=== PATIENT | female | born 1955 | race Caucasian/White ===

== ENCOUNTER → 2018-01-16 | Outpatient (CLI) | payer OTHER | END | disposition home or self-care (01) | LOC: RAH 13:34 | PROVIDERS: ATTEND Family Medicine | DX: Z12.31 Encounter for screening mammogram for malignant neoplasm of breast (principal) | CPT/HCPCS: 77067 ==

== ENCOUNTER → 2019-04-14 | Outpatient (CLI) | payer OTHER | END | disposition home or self-care (01) | LOC: RAH 09:58 | PROVIDERS: ATTEND Family Medicine | DX: Z12.31 Encounter for screening mammogram for malignant neoplasm of breast (principal) | CPT/HCPCS: 77067 ==

== ENCOUNTER → 2020-06-23 | Outpatient (CLI) | payer OTHER | END | disposition home or self-care (01) | LOC: RAH 13:08 | PROVIDERS: ATTEND Orthopaedic Surgery | DX: M25.561 Pain in right knee (principal); M25.562 Pain in left knee | CPT/HCPCS: 93925 ==

== ENCOUNTER 2020-08-31 06:23 | Observation (INO) | payer OTHER ==
[2020-08-25 12:03] LABS: BASOPHILS % (AUTO) 0.6 % (0.0-5.0); EOSINOPHILS % (AUTO) 0.6 % (0.0-8.0); HEMATOCRIT 44.2 % (36-48); LYMPHOCYTES % (AUTO) 34.6 % (21.0-51.0); MEAN CORPUSCULAR HEMOGLOBIN 32.5 pg (27.0-33.0); MEAN CORPUSCULAR HGB CONC 35.1 g/dL (32.0-36.0); MEAN CORPUSCULAR VOLUME 92.7 fL (79-99); MONOCYTES % (AUTO) 9.1 % (3.0-13.0); NEUTROPHILS % (AUTO) 54.8 % (40.0-77.0); PLATELET COUNT (AUTO) 284 K/uL (130-400); RED BLOOD CELL COUNT(AUTO) 4.77 MIL/uL (4.00-5.50); RED CELL DISTRIBUTION WIDTH 13.2 % (11.0-15.5); WHITE BLOOD COUNT (AUTO) 9.8 K/uL (4.8-10.8)
[2020-08-25 12:12] LABS: CREATININE 0.9 mg/dL (0.5-1.5); INR 0.98 (0.85-1.15); POTASSIUM 3.6 mmol/L (3.5-5.1); PROTHROMBIN TIME 10.7 SEC (9.6-11.6)
[2020-08-25 12:13] LABS: PARTIAL THROMBOPLASTIN TIME 28.9 SEC (26.3-35.5)
[2020-08-30 12:18] VITALS: BP 139/85
[2020-08-31] VITALS (22 sets, daily range): BP systolic 135–162; BP diastolic 54–104
[~2020-08-31] VITALS: Ht 147.3 cm; Wt 72.1 kg
[~2020-08-31 06:23] MED LIST: AEC81 PO; AMLO-258 PO; ATOR10 PO; CALC-1125 PO; GABA300C PO; HYDR25TA PO; LISI10TA24 PO; MELO-108 PO; METF-444 PO; OMEP40CA21 PO; OXCA300T28 PO; SEROQUEL PO; TRAM50TA4 PO; TRINTELLIX PO; VITAMIN D3 PO
[2020-08-31] MEDS ORDERED: NACL 0.9% 1000ML 1,000 ML IV ONE (07:28)
[2020-08-31] MEDS: CEFAZOLIN SODIUM 1 GM VIAL IVP SCH ×4 (07:38→20:19)
[2020-08-31] MEDS ORDERED: TRANEXAMIC ACID 1000MG/10ML ONE (08:04)
[2020-08-31] MEDS ORDERED: OXYCODONE HCL 5 MG TAB PO PRN (08:15)
[2020-08-31] MEDS ORDERED: POTASSIUM CHLORIDE 10% ELIXIR 20 MEQ/15 ML UDCUP PO PRN (08:15)
[2020-08-31] MEDS ORDERED: POTASSIUM CHLORIDE 20MEQ/100ML 100 ML IV PRN (08:15)
[2020-08-31] MEDS ORDERED: ONDANSETRON 4MG INJ IVP PRN (08:15)
[2020-08-31] MEDS ORDERED: LIDOCAINE HCL-MPF 1% 2ML VIAL IV PRN (08:15)
[2020-08-31] MEDS ORDERED: MORPHINE 4 MG SYG IVP PRN (08:15)
[2020-08-31] MEDS: ACETAMINOPHEN 500 MG TABLET PO SCH ×2 (08:15→14:44)
[2020-08-31 08:23] LABS: CREATININE 0.7 mg/dL (0.5-1.5); POTASSIUM 3.4 mmol/L (3.5-5.1)
[2020-08-31] MEDS: TRINTELLIX 10 MG PO SCH (09:00)
[2020-08-31] MEDS ORDERED: ONDANSETRON 4MG INJ ONE (09:29)
[2020-08-31] MEDS ORDERED: DEXAMETHASONE SOD PHOSPHATE 10MG/ML 1ML VIAL ONE (09:29)
[2020-08-31] MEDS ORDERED: PROPOFOL 10 MG/ML 20ML VIAL IV ONE ×2 (09:29→11:57)
[2020-08-31] MEDS ORDERED: FENTANYL CITRATE PF 50 MCG/1 ML 2ML VIAL ONE ×3 (09:29→11:57)
[2020-08-31] MEDS ORDERED: LIDOCAINE PF 100MG/5ML (2%) SYRINGE 5ML ONE ×2 (09:29→09:30)
[2020-08-31] MEDS ORDERED: SUCCINYLCHOLINE CHLORIDE 20 MG/ML 10 ML VIAL ONE ×2 (09:29→09:30)
[2020-08-31] MEDS ORDERED: NEOSTIGMINE 5MG/5ML SYR IV ONE (09:29)
[2020-08-31] MEDS ORDERED: GLYCOPYRROLATE 1 MG/5 ML SYRINGE ONE (09:29)
[2020-08-31] MEDS ORDERED: MIDAZOLAM HCL 1 MG/ML 2ML VIAL ONE (09:30)
[2020-08-31] MEDS ORDERED: ROCURONIUM 10MG/1ML SYR 10 MG/ML ML ONE (09:30)
[2020-08-31] MEDS ORDERED: ROPIVACAINE 0.5% 5MG/ML 30ML IJ ONE (10:03)
[2020-08-31] MEDS ORDERED: METOPROLOL TARTRATE 1 MG/ML 5ML VIAL IV ONE (11:00)
[2020-08-31] MEDS ORDERED: ATROPINE 1MG SYG IVP ONE (11:16)
[2020-08-31] MEDS ORDERED: VANCOMYCIN IV ONE (11:18)
[2020-08-31] MEDS ORDERED: MEPERIDINE-PF 25 MG/ML SYG ONE ×2 (12:13→12:25)
[2020-08-31] MEDS: NACL 0.9% 1000ML 1,000 ML IV SCH (13:41)
[2020-08-31] MEDS: POLYETHYLENE GLYCOL 3350 17 GM POWD.PACK PO SCH (14:37)
[2020-08-31] MEDS: FAMOTIDINE 20MG TAB PO SCH ×2 (14:39→20:18)
[2020-08-31] MEDS: ASPIRIN 81 MG EC TAB PO SCH (14:39)
[2020-08-31] MEDS: KCL 20 MEQ ERTAB PO PRN ×2 (14:40→14:45)
[2020-08-31] MEDS: METFORMIN HCL 500 MG TABLET PO SCH (14:40)
[2020-08-31] MEDS: GABAPENTIN 300 MG CAPSULE PO SCH ×2 (14:40→20:18)
[2020-08-31] MEDS: HYDROCHLOROTHIAZIDE 25 MG TABLET PO SCH (14:41)
[2020-08-31] MEDS: CELECOXIB 200 MG CAP PO SCH ×2 (14:41→20:18)
[2020-08-31] MEDS: LISINOPRIL 10 MG TABLET PO SCH (14:41)
[2020-08-31] MEDS: AMLODIPINE 5 MG TAB PO SCH (14:41)
[2020-08-31] MEDS: OXCARBAZEPINE 300 MG TAB PO SCH (20:18)
[2020-08-31] MEDS: HYDROCODONE/ACETAMINOPHEN 5/325 MG TAB PO PRN (20:18)
[2020-08-31] MEDS: QUETIAPINE FUMARATE 100 MG TAB PO SCH (20:18)
[2020-09-01] VITALS (7 sets, daily range): BP systolic 90–143; BP diastolic 48–87
[2020-09-01] MEDS: ACETAMINOPHEN 500 MG TABLET PO SCH ×2 (00:15→08:25)
[2020-09-01] MEDS: NACL 0.9% 1000ML 1,000 ML IV SCH (03:20)
[2020-09-01 03:56] LABS: MEAN CORPUSCULAR HEMOGLOBIN 32.4 pg (27.0-33.0); MEAN CORPUSCULAR HGB CONC 35.1 g/dL (32.0-36.0); MEAN CORPUSCULAR VOLUME 92.1 fL (79-99); RED BLOOD CELL COUNT(AUTO) 3.8 MIL/uL (4.00-5.50); RED CELL DISTRIBUTION WIDTH 13.1 % (11.0-15.5); WHITE BLOOD COUNT (AUTO) 11.4 K/uL (4.8-10.8)
[2020-09-01 04:06] LABS: CREATININE 0.7 mg/dL (0.5-1.5)
[2020-09-01] MEDS ORDERED: ROPIVICAINE 250MG+KETOROLAC 15MG+EPINEPHRINE 0.3+CLONIDINE 80 IV PRN ×5 (08:00)
[2020-09-01] MEDS: FAMOTIDINE 20MG TAB PO SCH ×2 (08:17→20:31)
[2020-09-01] MEDS: ASPIRIN 81 MG EC TAB PO SCH (08:17)
[2020-09-01] MEDS: HYDROCHLOROTHIAZIDE 25 MG TABLET PO SCH (08:17)
[2020-09-01] MEDS: LISINOPRIL 10 MG TABLET PO SCH (08:18)
[2020-09-01] MEDS: CELECOXIB 200 MG CAP PO SCH ×2 (08:18→20:30)
[2020-09-01] MEDS: METFORMIN HCL 500 MG TABLET PO SCH (08:18)
[2020-09-01] MEDS: GABAPENTIN 300 MG CAPSULE PO SCH ×2 (08:18→20:30)
[2020-09-01] MEDS: TRINTELLIX 10 MG PO SCH (08:25)
[2020-09-01] MEDS: POLYETHYLENE GLYCOL 3350 17 GM POWD.PACK PO SCH (08:25)
[2020-09-01] MEDS: AMLODIPINE 5 MG TAB PO SCH (08:26)
[2020-09-01] MEDS: OXCARBAZEPINE 300 MG TAB PO SCH (20:30)
[2020-09-01] MEDS: QUETIAPINE FUMARATE 100 MG TAB PO SCH (20:31)
[2020-09-02] MEDS: ACETAMINOPHEN 500 MG TABLET PO SCH ×2 (00:15→07:55)
[2020-09-02 03:10] VITALS: BP 112/66
[2020-09-02 07:35] LABS: CREATININE 0.9 mg/dL (0.5-1.5); POTASSIUM 3.5 mmol/L (3.5-5.1)
[2020-09-02] MEDS: CELECOXIB 200 MG CAP PO SCH (07:52)
[2020-09-02] MEDS: ASPIRIN 81 MG EC TAB PO SCH (07:52)
[2020-09-02] MEDS: METFORMIN HCL 500 MG TABLET PO SCH (07:52)
[2020-09-02] MEDS: POLYETHYLENE GLYCOL 3350 17 GM POWD.PACK PO SCH (07:53)
[2020-09-02] MEDS: GABAPENTIN 300 MG CAPSULE PO SCH (07:53)
[2020-09-02] MEDS: AMLODIPINE 5 MG TAB PO SCH (07:53)
[2020-09-02] MEDS: FAMOTIDINE 20MG TAB PO SCH (07:53)
[2020-09-02] MEDS: HYDROCHLOROTHIAZIDE 25 MG TABLET PO SCH (07:54)
[2020-09-02] MEDS: LISINOPRIL 10 MG TABLET PO SCH (07:54)
[2020-09-02] MEDS: HYDROCODONE/ACETAMINOPHEN 5/325 MG TAB PO PRN ×2 (07:55→16:27)
[2020-09-02] MEDS: TRINTELLIX 10 MG PO SCH (07:55)
[2020-09-02 08:09] VITALS: BP 148/72
[2020-09-02 11:37] VITALS: BP 92/56
[2020-09-03] MEDS ORDERED: BISACODYL 10 MG SUPP.RECT RC PRN (08:15)
== END 2020-09-02 18:58 | disposition home or self-care (01) ==
LOC: DAH 06:23 → DAHIP 06:24 → 4BH 12:51
PROVIDERS: ADMIT Orthopaedic Surgery; ATTEND Orthopaedic Surgery
DX: M17.11 Unilateral primary osteoarthritis, right knee (principal); Z20.822 Contact with and (suspected) exposure to COVID-19; M21.161 Varus deformity, not elsewhere classified, right knee; M21.162 Varus deformity, not elsewhere classified, left knee; Z79.82 Long term (current) use of aspirin; Z79.899 Other long term (current) drug therapy
CPT/HCPCS: 27447; 36415 ×4; 80048 ×4; 82948 ×9; 85025; 85027; 85610; 85730; 87635; 96361; 96374; 96375; 96376; 97039 ×5; 97116 ×4; 97161; 97530 ×4; A4215; A4221; A4222; A4223; A4600; A4649 ×5; A4663; A4930; A5120; C1776; C9803; G0378 ×54; G8979; G8980; G8981; G8982; G8983; J0330 ×2; J0461; J0690 ×3; J1100; J2001 ×2; J2175 ×2; J2250; J2270; J2405; J2704 ×2; J2710; J2795; J3010 ×3; J3480 ×2; J3490 ×5; J7030 ×3; J7040; J3370

== ENCOUNTER 2021-06-30 15:53 | Inpatient (IN) | payer OTHER ==
[~2021-06-30] VITALS: Ht 147.3 cm; Wt 65.3 kg
[~2021-06-30 15:53] MED LIST changes: -AEC81 PO; +AMOX-426 PO; +ASPI-1443 PO; +METO25TA6 PO; +QUET400T13 PO; -TRAM50TA4 PO
[2021-06-30 17:03] LABS: BASOPHILS % (AUTO) 0.3 % (0.0-5.0); EOSINOPHILS % (AUTO) 0.5 % (0.0-8.0); HEMATOCRIT 45.4 % (36-48); LYMPHOCYTES % (AUTO) 9.9 % (21.0-51.0); MEAN CORPUSCULAR HEMOGLOBIN 31.6 pg (27.0-33.0); MEAN CORPUSCULAR HGB CONC 33.5 g/dL (32.0-36.0); MEAN CORPUSCULAR VOLUME 94.4 fL (79-99); MONOCYTES % (AUTO) 9.5 % (3.0-13.0); NEUTROPHILS % (AUTO) 79.4 % (40.0-77.0); PLATELET COUNT (AUTO) 258 K/uL (130-400); RED BLOOD CELL COUNT(AUTO) 4.81 MIL/uL (4.00-5.50); RED CELL DISTRIBUTION WIDTH 13.9 % (11.0-15.5); WHITE BLOOD COUNT (AUTO) 18.9 K/uL (4.8-10.8)
[2021-06-30 17:12] LABS: CREATININE 1.1 mg/dL (0.5-1.5)
[2021-06-30 17:17] LABS: APPEARANCE,URINE Cloudy (CLEAR); BILIRUBIN,URINE Negative (NEGATIVE); COLOR,URINE Dark Yellow (YELLOW); GLUCOSE, URINE (UA) 250 mg/dL (NEGATIVE); KETONES,URINE Trace mg/dL (NEGATIVE); LEUKOCYTE ESTERASE ,URINE Trace (NEGATIVE); NITRATE,URINE Negative (NEGATIVE); OCCULT BLOOD,URINE Trace (NEGATIVE); PROTEIN,URINE POS 2+ mg/dL (NEGATIVE)
[2021-06-30 17:22] LABS: ALBUMIN 3.2 g/dL (3.5-5.0); BILIRUBIN,TOTAL 0.4 mg/dL (0.2-1.0); TOTAL PROTEIN, SERUM 8.3 g/dL (6.0-8.3)
[2021-06-30] MEDS ORDERED: POTASSIUM BICARB/CIT AC 25 MEQ TABLET.EFF PO ONE (17:30)
[2021-06-30] MEDS ORDERED: 0.9%NACL 1000ML 1,000 ML IV ONE (17:30)
[2021-06-30] MEDS ORDERED: INSULIN HUMULIN R 100 UNIT/ML 3ML IV ONE (17:30)
[2021-06-30 17:43] LABS: BACTERIA,URINE Few /HPF (None Seen); OTHER CASTS, URINE MIXED CELL CASTS 2+ /LPF (None Seen); SQUAMOUS EPITHELIAL CELL,UR Moderate /HPF (0-2)
[2021-06-30 17:44] LABS: MUCUS,URINE Few LPF (None Seen)
[2021-06-30] MEDS ORDERED: MEROPENEM 1 GM VIAL IVP SCH (18:00)
[2021-06-30] MEDS ORDERED: DOCUSATE SODIUM 100 MG CAP PO PRN (18:00)
[2021-06-30] MEDS ORDERED: LACTULOSE 20 GM/30 ML UDCUP PO PRN (18:00)
[2021-06-30] MEDS ORDERED: ACETAMINOPHEN 650 MG SUPPOSITORY RC PRN (18:00)
[2021-06-30] MEDS ORDERED: DEXTROSE 50%-WATER 50 ML DISP.SYRIN IV PRN (18:00)
[2021-06-30] MEDS ORDERED: ALBUTEROL INHALER 90MCG/INH IH PRN (18:00)
[2021-06-30] MEDS ORDERED: GLUCAGON 1MG KIT 1 MG ML IM PRN (18:00)
[2021-06-30] MEDS: MEROPENEM 1 GM VIAL IVP SCH (18:01)
[2021-06-30] MEDS: ZOSYN 3.375GM +NS 50ML IV SCH (18:01)
[2021-06-30] MEDS: CLINDAMYCIN IVPB 300MG/50ML 50 ML IV SCH (19:20)
[2021-06-30] MEDS: HYDRALAZINE 20MG/ML VIAL IV PRN (20:26)
[2021-06-30] MEDS: INSULIN HUMULIN R 100 UNIT/ML 3ML SQ SCH (21:00)
[2021-07-01] MEDS ORDERED: 0.9%NACL 50ML 50 ML IV ONE ×2 (01:36→10:53)
[2021-07-01] MEDS: ZOSYN 3.375GM +NS 50ML IV SCH ×2 (01:40→11:12)
[2021-07-01] MEDS: MEROPENEM 1 GM VIAL IVP SCH ×2 (01:40→11:12)
[2021-07-01] MEDS ORDERED: TEMAZEPAM 15 MG CAPSULE PO ONE (02:30)
[2021-07-01] MEDS: ONDANSETRON 4MG INJ IVP PRN ×2 (02:46→11:13)
[2021-07-01] MEDS: CLINDAMYCIN IVPB 300MG/50ML 50 ML IV SCH ×2 (04:34→10:00)
[2021-07-01 05:50] LABS: MEAN CORPUSCULAR HEMOGLOBIN 32.3 pg (27.0-33.0); MEAN CORPUSCULAR HGB CONC 35.3 g/dL (32.0-36.0); MEAN CORPUSCULAR VOLUME 91.3 fL (79-99); RED BLOOD CELL COUNT(AUTO) 4.71 MIL/uL (4.00-5.50); RED CELL DISTRIBUTION WIDTH 13.5 % (11.0-15.5); WHITE BLOOD COUNT (AUTO) 18.8 K/uL (4.8-10.8)
[2021-07-01 06:03] LABS: CREATININE 0.7 mg/dL (0.5-1.5); MAGNESIUM 1.8 mg/dL (1.80-2.40); PHOSPHORUS 2.7 mg/dL (2.5-4.9)
[2021-07-01] MEDS: INSULIN HUMULIN R 100 UNIT/ML 3ML SQ SCH ×4 (07:30→21:00)
[2021-07-01] MEDS: ENOXAPARIN SODIUM 30 MG/0.3 ML SQ SCH (09:00)
[2021-07-01] MEDS: PANTOPRAZOLE 40 MG/VIAL IVP SCH (09:00)
[2021-07-01] MEDS ORDERED: 0.9%NACL 100ML 100 ML ONE (10:53)
[2021-07-01] MEDS: HYDROCODONE/ACETAMINOPHEN 5/325 MG TAB PO PRN (11:14)
[2021-07-01] MEDS ORDERED: POTASSIUM CHLORIDE 10% ELIXIR 20 MEQ/15 ML UDCUP ONE (12:05)
[2021-07-01] MEDS ORDERED: POTASSIUM CHLORIDE 20MEQ/100ML 100 ML IV PRN (12:30)
[2021-07-01] MEDS ORDERED: LIDOCAINE HCL-MPF 1% 2ML VIAL IV PRN (12:30)
[2021-07-01] MEDS ORDERED: POTASSIUM CHLORIDE 10% ELIXIR 20 MEQ/15 ML UDCUP PO PRN (12:30)
[2021-07-01] MEDS: KCL 20 MEQ ERTAB PO PRN (14:00)
[2021-07-01] MEDS: HYDRALAZINE 20MG/ML VIAL IV PRN (14:03)
[2021-07-01] MEDS ORDERED: VANCOMYCIN PROTOCOL PER PHARMACY IV SCH (15:00)
[2021-07-01] MEDS: AMP/SULBAC 3GM+NS 100ML 100 ML IV SCH ×2 (16:21→21:15)
[2021-07-01 16:23] VITALS: BP 188/93
[2021-07-01] MEDS ORDERED: 0.9% NACL 250ML 250 ML ONE (17:08)
[2021-07-01] MEDS: VANCOMYCIN 1G/250ML KIT 250 ML IV SCH (17:10)
[2021-07-01 20:05] VITALS: BP 129/94
[2021-07-01 23:27] VITALS: BP 165/84
[2021-07-01] MEDS ORDERED: QUETIAPINE FUMARATE 100 MG TAB ONE (23:44)
[2021-07-01] MEDS: QUETIAPINE FUMARATE 100 MG TAB PO SCH (23:56)
[2021-07-02] MEDS: AMP/SULBAC 3GM+NS 100ML 100 ML IV SCH ×4 (03:36→22:09)
[2021-07-02 03:55] VITALS: BP 118/66
[2021-07-02 04:38] LABS: BASOPHILS % (AUTO) 0.3 % (0.0-5.0); EOSINOPHILS % (AUTO) 1.7 % (0.0-8.0); HEMATOCRIT 39.3 % (36-48); LYMPHOCYTES % (AUTO) 21.8 % (21.0-51.0); MEAN CORPUSCULAR HEMOGLOBIN 31.2 pg (27.0-33.0); MEAN CORPUSCULAR HGB CONC 33.3 g/dL (32.0-36.0); MEAN CORPUSCULAR VOLUME 93.6 fL (79-99); MONOCYTES % (AUTO) 10.3 % (3.0-13.0); NEUTROPHILS % (AUTO) 65.3 % (40.0-77.0); PLATELET COUNT (AUTO) 250 K/uL (130-400); RED CELL DISTRIBUTION WIDTH 13.5 % (11.0-15.5); WHITE BLOOD COUNT (AUTO) 15.5 K/uL (4.8-10.8)
[2021-07-02 05:03] LABS: ALBUMIN 2.4 g/dL (3.5-5.0); BILIRUBIN,TOTAL 0.4 mg/dL (0.2-1.0); CREATININE 0.7 mg/dL (0.5-1.5); TOTAL PROTEIN, SERUM 6.5 g/dL (6.0-8.3)
[2021-07-02 05:31] LABS: POTASSIUM 2.9 mmol/L (3.5-5.1)
[2021-07-02] MEDS: INSULIN HUMULIN R 100 UNIT/ML 3ML SQ SCH ×4 (05:32→21:00)
[2021-07-02] MEDS: KCL 20 MEQ ERTAB PO PRN ×3 (05:46→18:45)
[2021-07-02 08:00] VITALS: BP 143/82
[2021-07-02] MEDS: ENOXAPARIN SODIUM 30 MG/0.3 ML SQ SCH ×2 (09:00→09:45)
[2021-07-02] MEDS: VANCOMYCIN 1G/250ML KIT 250 ML IV SCH ×2 (09:45→20:37)
[2021-07-02] MEDS: PANTOPRAZOLE 40 MG/VIAL IVP SCH (09:45)
[2021-07-02 11:43] VITALS: BP 164/86
[2021-07-02] MEDS: HYDROCODONE/ACETAMINOPHEN 5/325 MG TAB PO PRN ×2 (13:04→20:35)
[2021-07-02 16:42] VITALS: BP 136/62
[2021-07-02 20:20] VITALS: BP 159/93
[2021-07-02] MEDS: QUETIAPINE FUMARATE 100 MG TAB PO SCH (20:37)
[2021-07-03 00:12] VITALS: BP 130/64
[2021-07-03] MEDS: AMP/SULBAC 3GM+NS 100ML 100 ML IV SCH ×4 (03:42→20:27)
[2021-07-03 03:48] VITALS: BP 169/78
[2021-07-03] MEDS: HYDROCODONE/ACETAMINOPHEN 5/325 MG TAB PO PRN ×4 (04:17→22:57)
[2021-07-03 05:00] LABS: BASOPHILS % (AUTO) 0.4 % (0.0-5.0); EOSINOPHILS % (AUTO) 4.7 % (0.0-8.0); HEMATOCRIT 38.9 % (36-48); MEAN CORPUSCULAR HEMOGLOBIN 31.1 pg (27.0-33.0); MEAN CORPUSCULAR HGB CONC 32.9 g/dL (32.0-36.0); MEAN CORPUSCULAR VOLUME 94.4 fL (79-99); MONOCYTES % (AUTO) 10.9 % (3.0-13.0); NEUTROPHILS % (AUTO) 55.5 % (40.0-77.0); PLATELET COUNT (AUTO) 262 K/uL (130-400); RED BLOOD CELL COUNT(AUTO) 4.12 MIL/uL (4.00-5.50); RED CELL DISTRIBUTION WIDTH 13.4 % (11.0-15.5); WHITE BLOOD COUNT (AUTO) 13.3 K/uL (4.8-10.8)
[2021-07-03 05:09] LABS: ALBUMIN 2.5 g/dL (3.5-5.0); BILIRUBIN,TOTAL 0.3 mg/dL (0.2-1.0); CREATININE 0.6 mg/dL (0.5-1.5); POTASSIUM 3.4 mmol/L (3.5-5.1); TOTAL PROTEIN, SERUM 6.4 g/dL (6.0-8.3)
[2021-07-03 07:30] VITALS: BP 193/96
[2021-07-03] MEDS: INSULIN HUMULIN R 100 UNIT/ML 3ML SQ SCH ×4 (07:30→21:00)
[2021-07-03 11:00] VITALS: BP 182/94
[2021-07-03] MEDS: VANCOMYCIN 1G/250ML KIT 250 ML IV SCH ×2 (11:15→21:30)
[2021-07-03] MEDS: PANTOPRAZOLE 40 MG/VIAL IVP SCH (11:16)
[2021-07-03] MEDS: ENOXAPARIN SODIUM 30 MG/0.3 ML SQ SCH (11:17)
[2021-07-03 16:00] VITALS: BP 182/94
[2021-07-03] MEDS: KCL 20 MEQ ERTAB PO PRN ×2 (17:29→17:30)
[2021-07-03 20:27] VITALS: BP 164/82
[2021-07-03] MEDS: METOPROLOL TARTRATE 25 MG TAB PO SCH (20:27)
[2021-07-03] MEDS: QUETIAPINE FUMARATE 100 MG TAB PO SCH (21:30)
[2021-07-03] MEDS: OXCARBAZEPINE 300 MG TAB PO SCH (21:31)
[2021-07-04] VITALS (18 sets, daily range): BP systolic 133–201; BP diastolic 77–107
[2021-07-04] MEDS: AMP/SULBAC 3GM+NS 100ML 100 ML IV SCH ×4 (02:56→22:30)
[2021-07-04 04:42] LABS: BASOPHILS % (AUTO) 0.6 % (0.0-5.0); EOSINOPHILS % (AUTO) 5.5 % (0.0-8.0); LYMPHOCYTES % (AUTO) 36.1 % (21.0-51.0); MEAN CORPUSCULAR HEMOGLOBIN 31.9 pg (27.0-33.0); MEAN CORPUSCULAR HGB CONC 33.9 g/dL (32.0-36.0); MONOCYTES % (AUTO) 12.2 % (3.0-13.0); NEUTROPHILS % (AUTO) 44.7 % (40.0-77.0); PLATELET COUNT (AUTO) 242 K/uL (130-400); RED BLOOD CELL COUNT(AUTO) 3.83 MIL/uL (4.00-5.50); RED CELL DISTRIBUTION WIDTH 13.5 % (11.0-15.5); WHITE BLOOD COUNT (AUTO) 9.4 K/uL (4.8-10.8)
[2021-07-04 05:04] LABS: ALBUMIN 2.2 g/dL (3.5-5.0); BILIRUBIN,TOTAL 0.3 mg/dL (0.2-1.0); CREATININE 0.6 mg/dL (0.5-1.5); POTASSIUM 3.5 mmol/L (3.5-5.1)
[2021-07-04] MEDS: INSULIN HUMULIN R 100 UNIT/ML 3ML SQ SCH ×4 (07:30→21:00)
[2021-07-04] MEDS: ENOXAPARIN SODIUM 30 MG/0.3 ML SQ SCH (09:00)
[2021-07-04] MEDS: ASPIRIN 81 MG EC TAB PO SCH (09:00)
[2021-07-04] MEDS ORDERED: 0.9% NACL 250ML 250 ML ONE ×2 (09:04→09:20)
[2021-07-04] MEDS: PANTOPRAZOLE 40 MG/VIAL IVP SCH (09:09)
[2021-07-04] MEDS: METOPROLOL TARTRATE 25 MG TAB PO SCH ×2 (09:09→21:02)
[2021-07-04] MEDS: VANCOMYCIN 1G/250ML KIT 250 ML IV SCH ×2 (09:18→21:01)
[2021-07-04] MEDS ORDERED: SUCCINYLCHOLINE CHLORIDE 20 MG/ML 10 ML VIAL ONE ×2 (13:03→13:04)
[2021-07-04] MEDS ORDERED: ONDANSETRON 4MG INJ ONE (13:03)
[2021-07-04] MEDS ORDERED: MIDAZOLAM HCL 1 MG/ML 2ML VIAL ONE (13:03)
[2021-07-04] MEDS ORDERED: DEXAMETHASONE SOD PHOSPHATE 10MG/ML 1ML VIAL ONE (13:03)
[2021-07-04] MEDS ORDERED: GLYCOPYRROLATE 1 MG/5 ML SYRINGE ONE (13:03)
[2021-07-04] MEDS ORDERED: LIDOCAINE PF 100MG/5ML (2%) SYRINGE 5ML ONE ×2 (13:03→13:04)
[2021-07-04] MEDS ORDERED: FENTANYL CITRATE PF 50 MCG/1 ML 2ML VIAL ONE ×2 (13:04→13:46)
[2021-07-04] MEDS ORDERED: PROPOFOL 10 MG/ML 20ML VIAL IV ONE (13:04)
[2021-07-04] MEDS ORDERED: ROCURONIUM 10MG/1ML SYR 10 MG/ML ML ONE (13:04)
[2021-07-04] MEDS ORDERED: NEOSTIGMINE 5MG/5ML SYR IV ONE (13:04)
[2021-07-04] MEDS ORDERED: MEPERIDINE-PF 25 MG/ML SYG ONE (13:38)
[2021-07-04] MEDS: HYDROCODONE/ACETAMINOPHEN 5/325 MG TAB PO PRN ×2 (14:58→21:02)
[2021-07-04] MEDS: ACETAMINOPHEN 325 MG TAB PO PRN (17:47)
[2021-07-04] MEDS: OXCARBAZEPINE 300 MG TAB PO SCH (21:01)
[2021-07-04] MEDS: QUETIAPINE FUMARATE 100 MG TAB PO SCH (21:02)
[2021-07-05] VITALS: BP 143/78
[2021-07-05] MEDS: ACETAMINOPHEN 325 MG TAB PO PRN ×2 (02:40→21:30)
[2021-07-05] MEDS: AMP/SULBAC 3GM+NS 100ML 100 ML IV SCH ×4 (03:28→20:11)
[2021-07-05 03:59] VITALS: BP 150/76
[2021-07-05 05:28] LABS: BASOPHILS % (AUTO) 0.5 % (0.0-5.0); HEMATOCRIT 40.1 % (36-48); LYMPHOCYTES % (AUTO) 31.9 % (21.0-51.0); MEAN CORPUSCULAR HEMOGLOBIN 31.1 pg (27.0-33.0); MEAN CORPUSCULAR HGB CONC 32.9 g/dL (32.0-36.0); MEAN CORPUSCULAR VOLUME 94.4 fL (79-99); MONOCYTES % (AUTO) 11.3 % (3.0-13.0); NEUTROPHILS % (AUTO) 51.5 % (40.0-77.0); PLATELET COUNT (AUTO) 281 K/uL (130-400); RED BLOOD CELL COUNT(AUTO) 4.25 MIL/uL (4.00-5.50); RED CELL DISTRIBUTION WIDTH 13.2 % (11.0-15.5); WHITE BLOOD COUNT (AUTO) 13.2 K/uL (4.8-10.8)
[2021-07-05 06:02] LABS: ALBUMIN 2.5 g/dL (3.5-5.0); BILIRUBIN,TOTAL 0.3 mg/dL (0.2-1.0); CREATININE 0.7 mg/dL (0.5-1.5); POTASSIUM 3.3 mmol/L (3.5-5.1); TOTAL PROTEIN, SERUM 6.9 g/dL (6.0-8.3)
[2021-07-05] MEDS: INSULIN HUMULIN R 100 UNIT/ML 3ML SQ SCH ×4 (06:47→21:00)
[2021-07-05 08:00] VITALS: BP 156/83
[2021-07-05] MEDS ORDERED: 0.9% NACL 250ML 250 ML ONE (08:25)
[2021-07-05] MEDS: VANCOMYCIN 1G/250ML KIT 250 ML IV SCH ×2 (08:40→20:11)
[2021-07-05] MEDS: HYDROCODONE/ACETAMINOPHEN 5/325 MG TAB PO PRN ×4 (08:41→17:30)
[2021-07-05] MEDS: ENOXAPARIN SODIUM 30 MG/0.3 ML SQ SCH (08:41)
[2021-07-05] MEDS: ASPIRIN 81 MG EC TAB PO SCH (08:42)
[2021-07-05] MEDS: PANTOPRAZOLE 40 MG/VIAL IVP SCH (08:42)
[2021-07-05] MEDS: METOPROLOL TARTRATE 25 MG TAB PO SCH ×2 (08:42→21:30)
[2021-07-05] MEDS: KCL 20 MEQ ERTAB PO PRN ×2 (08:42→16:29)
[2021-07-05 12:00] VITALS: BP 162/85
[2021-07-05 16:00] VITALS: BP 149/78
[2021-07-05 20:00] VITALS: BP 102/96
[2021-07-05] MEDS: OXCARBAZEPINE 300 MG TAB PO SCH (21:30)
[2021-07-05] MEDS: QUETIAPINE FUMARATE 100 MG TAB PO SCH (21:30)
[2021-07-06] VITALS: BP 142/74
[2021-07-06] MEDS: AMP/SULBAC 3GM+NS 100ML 100 ML IV SCH ×3 (02:32→09:00)
[2021-07-06 03:53] VITALS: BP 116/70
[2021-07-06 04:15] LABS: BASOPHILS % (AUTO) 0.7 % (0.0-5.0); EOSINOPHILS % (AUTO) 3.2 % (0.0-8.0); HEMATOCRIT 35.8 % (36-48); LYMPHOCYTES % (AUTO) 39.2 % (21.0-51.0); MEAN CORPUSCULAR HEMOGLOBIN 32.1 pg (27.0-33.0); MEAN CORPUSCULAR HGB CONC 33.8 g/dL (32.0-36.0); MONOCYTES % (AUTO) 11.2 % (3.0-13.0); NEUTROPHILS % (AUTO) 44.9 % (40.0-77.0); PLATELET COUNT (AUTO) 289 K/uL (130-400); RED BLOOD CELL COUNT(AUTO) 3.77 MIL/uL (4.00-5.50); RED CELL DISTRIBUTION WIDTH 13.5 % (11.0-15.5); WHITE BLOOD COUNT (AUTO) 10.6 K/uL (4.8-10.8)
[2021-07-06 04:28] LABS: ALBUMIN 2.3 g/dL (3.5-5.0); BILIRUBIN,TOTAL 0.2 mg/dL (0.2-1.0); CREATININE 0.7 mg/dL (0.5-1.5); PHOSPHORUS 3.5 mg/dL (2.5-4.9); POTASSIUM 3.6 mmol/L (3.5-5.1); TOTAL PROTEIN, SERUM 6.2 g/dL (6.0-8.3)
[2021-07-06] MEDS: INSULIN HUMULIN R 100 UNIT/ML 3ML SQ SCH (06:08)
[2021-07-06 07:05] VITALS: BP 146/82
[2021-07-06] MEDS: ASPIRIN 81 MG EC TAB PO SCH (08:44)
[2021-07-06] MEDS: PANTOPRAZOLE 40 MG/VIAL IVP SCH ×2 (08:45→09:00)
[2021-07-06] MEDS: METOPROLOL TARTRATE 25 MG TAB PO SCH (08:45)
[2021-07-06] MEDS: ENOXAPARIN SODIUM 30 MG/0.3 ML SQ SCH (08:45)
[2021-07-06] MEDS: VANCOMYCIN 1G/250ML KIT 250 ML IV SCH (09:00)
[2021-07-06 11:20] VITALS: BP 137/77
== END 2021-07-06 13:26 | disposition home or self-care (01) | DRG 603 ==
LOC: EDH 15:53 → OBSVTOIN 17:56 → EDHIP 17:56 → 3DH 07-01 14:34
PROVIDERS: ADMIT Internal Medicine; ATTEND Internal Medicine
PROC: 0J9J0ZZ Drainage of Right Hand Subcutaneous Tissue and Fascia, Open Approach (ICD-10-PCS; principal; 2021-07-04 13:17)
DX: L03.113 Cellulitis of right upper limb (principal); L02.511 Cutaneous abscess of right hand; E87.1 Hypo-osmolality and hyponatremia; N39.0 Urinary tract infection, site not specified; W55.01XA Bitten by cat, initial encounter; E11.65 Type 2 diabetes mellitus with hyperglycemia; E87.6 Hypokalemia; I10 Essential (primary) hypertension; Z20.822 Contact with and (suspected) exposure to COVID-19; M19.90 Unspecified osteoarthritis, unspecified site; Z96.651 Presence of right artificial knee joint; Z83.3 Family history of diabetes mellitus; E78.5 Hyperlipidemia, unspecified; Z79.899 Other long term (current) drug therapy; E78.00 Pure hypercholesterolemia, unspecified; B85.0 Pediculosis due to Pediculus humanus capitis; Z72.0 Tobacco use; D72.829 Elevated white blood cell count, unspecified; Y93.89 Activity, other specified; Y92.89 Other specified places as the place of occurrence of the external cause; Y99.8 Other external cause status
CPT/HCPCS: 36415; 71045; 73130; 73220; 80048; 80053; 80202; 81001; 82948; 83605; 83735; 84100; 84145; 84484; 85025; 85027; 87040; 87070; 87076; 87088; 87205; 87635; A6266; C9113; C9803; G0378; J0295; J0330; J0360; J1100; J1650; J1815; J2001; J2175; J2185; J2250; J2405; J2543; J2704; J2710; J3010; J3370; J3480; J3490; J7050

== ENCOUNTER → 2023-10-01 | Outpatient (CLI) | payer OTHER | END | disposition home or self-care (01) | LOC: RAH 10:48 | PROVIDERS: ATTEND Family Medicine | DX: Z12.31 Encounter for screening mammogram for malignant neoplasm of breast (principal) | CPT/HCPCS: 77067 ==

== ENCOUNTER → 2024-12-11 | Outpatient (CLI) | payer OTHER | END | disposition home or self-care (01) | LOC: RAH 07:36 | PROVIDERS: ATTEND Family Medicine | DX: Z12.31 Encounter for screening mammogram for malignant neoplasm of breast (principal) | CPT/HCPCS: 77067 ==